=== PATIENT | female | born 1995 | race Two or more races ===

== ENCOUNTER 2020-04-05 19:58 | Emergency (ER) | payer OTHER ==
[~2020-04-05] VITALS: Ht 152.4 cm; Wt 73.3 kg
--- NOTE | 2020-04-05 20:27 | NUR ---
Patient presents to ER c/o diarrhea and generalized abd pain since yesterday. Patient states it started after eating dinner yesterday and has been ongoing since. Patient's last bout of diarrhea was approx 1 hr ago. Patient is slightly nauseous but no vomiting noted. Patient has a hx of IBS. Patient is in NAD. REspirations even and unlabored.
[2020-04-05] MEDS ORDERED: ACETAMINOPHEN 500 MG TABLET ONE (21:22)
[2020-04-05] MEDS ORDERED: ONDANSETRON 2MG/ML, 2ML ONE (21:22)
[2020-04-05] MEDS ORDERED: SODIUM CHLORIDE 0.9% 1,000ML IVBOLUS ONE (21:30)
[2020-04-05] MEDS ORDERED: ACETAMINOPHEN 500 MG TABLET PO ONE (21:30)
[2020-04-05] MEDS ORDERED: ONDANSETRON 2MG/ML, 2ML IVPush ONE (21:30)
[2020-04-05] MEDS ORDERED: SODIUM CHLORIDE FLUSH 10ML SYR IVF ONE (21:30)
[2020-04-05 21:36] LABS: HCG UR SG 1.008 (1.003-1.030)
[2020-04-05 21:39] LABS: MICROSCOPIC INDICATED
[2020-04-05 21:42] VITALS: BP 93/36
[2020-04-05 21:44] LABS: BASOPHILS % (AUTO) 0 % (0-1); EOSINOPHILS % (AUTO) 0 % (1-7); LYMPHOCYTES % (AUTO) 11 % (22-44); MEAN CORPUSCULAR HEMOGLOBIN 31.7 pg (27.0-34.8); MEAN CORPUSCULAR HGB CONC 34.3 g/dL (32.4-35.8); MONOCYTES % (AUTO) 8 % (2-9); NEUTROPHILS % (AUTO) 81 % (42-75); PLATELET COUNT 230 x10^3/uL (130-400); RED BLOOD COUNT 4.36 x10^6/uL (3.82-5.3)
[2020-04-05 21:48] LABS: MD NO
[2020-04-05 21:52] LABS: ALANINE AMINOTRANSFERASE 19 U/L (12-78); ALBUMIN 3.8 g/dL (3.4-5.0); ANION GAP 7 mmol/L (5-15); CALCIUM 8.5 mg/dL (8.5-10.1); CHLORIDE 108 mmol/L (98-107); CREATININE 0.73 mg/dL (0.55-1.02)
[2020-04-05 21:53] LABS: RAPID INFLUENZA A Negative (Negative); RAPID INFLUENZA B Negative (Negative)
[2020-04-05 21:54] LABS: ALKALINE PHOSPHATASE 74 U/L (45-117); BILIRUBIN,TOTAL 0.7 mg/dL (0.2-1.0); TOTAL PROTEIN 8.1 g/dL (6.4-8.2)
--- NOTE | 2020-04-05 23:23 | NUR ---
Discharge instructions given. All questions and concerns addressed. Patient ambulatory with a steady gait. Belongings with patient.
== END 2020-04-05 23:25 | disposition home or self-care (01) ==
LOC: ED 22:45
DX: K52.9 Noninfective gastroenteritis and colitis, unspecified (principal); Z20.822 Contact with and (suspected) exposure to COVID-19; R50.9 Fever, unspecified; R42 Dizziness and giddiness; R00.0 Tachycardia, unspecified; R11.0 Nausea; R10.84 Generalized abdominal pain
CPT/HCPCS: 80053; 81001; 81025; 83690; 85025; 87400; 87635; 96374; 99283; J2405; J7030